=== PATIENT | female | born 1960 | race Caucasian/White ===

== ENCOUNTER 2020-03-15 09:16 | Outpatient (CLI) | payer OTHER, SELFPAY ==
[2020-03-15 09:27] LABS: Basophils Percent Auto 1.1 % (0.2-1.2); Eosinophils Absolute Auto 0.1 K/mm3 (0-0.3); Eosinophils Percent Auto 3.9 % (0-4.4); Hematocrit 54.2 % (37.0-47.0); Hemoglobin 18.3 g/dL (12.0-15.0); Immature Granulocyte Absolute 0.01 K/mm3 (0.00-0.031); Immature Granulocyte Percent A 0.3 % (0-0.5); Lymphocytes Absolute Auto 0.75 K/mm3 (0.9-3.2); Lymphocytes Percent Auto 20.7 % (18.3-44.2); Mean Corpuscular HGB Conc 33.8 g/dl (32-36); Mean Corpuscular Hemoglobin 31.2 pg (26-34); Mean Corpuscular Volume 92.3 fl (80-100); Monocytes Absolute Auto 0.4 K/mm3 (0.1-0.6); Monocytes Percent Auto 10.5 % (2.6-8.5); Neutrophils Absolute Auto 2.3 K/mm3 (1.3-6.7); Neutrophils Percent Auto 63.5 % (45.5-73.1); Platelet Count Result 181 k/mm3 (150-375); Red Blood Count 5.87 M/mm3 (4.2-5.4); Red Cell Distribution Width 12.3 % (11.5-14.5); White Blood Count 3.6 K/mm3 (4.5-10.0)
[2020-03-15 12:38] LABS: Alanine Aminotransferase 15 U/L (4-35); Albumin Level 4.6 g/dL (3.5-5.1); Alkaline Phosphatase 80 U/L (38-126); Aspartate Amino Transferase 29 U/L (14-36); Bilirubin,Total 0.4 mg/dL (0.2-1.3); Blood Urea Nitrogen 23 mg/dL (7-17); Calcium 9.9 mg/dL (8.4-10.2); Carbon Dioxide 23 mmol/L (22-30); Chloride 108 mmol/L (98-107); Cholesterol 158 mg/dL (0-200); Estimated Glomerular Filt Rate > 60; Glucose 114 mg/dL (65-105); HDL Direct 64 mg/dL; Potassium 4.5 mmol/L (3.4-5.0); Sodium 139 mmol/L (137-145); Triglycerides 44 mg/dL (<150)
[2020-03-15 12:50] LABS: LDL Cholesterol Direct 81 mg/dL
[2020-03-20 16:45] LABS: Hepatitis C Viral RNA PCR <15 IU/mL
[2020-03-21 17:16] LABS: HIV 1 RNA PCR <1.30 Log cps/mL; HIV 1 RNA PCR <20 Copies/mL
== END 2020-03-15 09:17 | disposition home or self-care (01) ==
LOC: ANHLAB 09:17
PROVIDERS: PCP Family Medicine; Visit Provider Family Medicine
DX: M81.0 Age-related osteoporosis without current pathological fracture (principal); Z13.220 Encounter for screening for lipoid disorders; Z11.4 Encounter for screening for human immunodeficiency virus [HIV]; Z11.59 Encounter for screening for other viral diseases
CPT/HCPCS: 36415; 80053; 80061; 85025; 87522; 87536

== ENCOUNTER 2020-07-30 08:40 | Outpatient (CLI) | payer OTHER, SELFPAY ==
[2020-07-30 11:00] LABS: Vitamin D 25 Hydroxy 38.3 ng/mL
== END 2020-07-30 08:41 | disposition home or self-care (01) ==
LOC: ANHLAB 08:43
PROVIDERS: PCP Family Medicine; Referring Provider Nurse Practitioner; Visit Provider Internal Medicine Hematology & Oncology
DX: E55.9 Vitamin D deficiency, unspecified (principal)
CPT/HCPCS: 36415; 82306

== ENCOUNTER 2020-11-14 11:50 | Outpatient (CLI) | payer OTHER, SELFPAY ==
[2020-11-14 13:52] LABS: Vitamin D 25 Hydroxy 39.3 ng/mL
== END 2020-11-14 11:51 | disposition home or self-care (01) ==
LOC: ANHLAB 11:52
PROVIDERS: PCP Family Medicine; Visit Provider Obstetrics & Gynecology Gynecology
DX: E55.9 Vitamin D deficiency, unspecified (principal)
CPT/HCPCS: 36415; 82306

== ENCOUNTER 2021-01-04 10:24 | Outpatient (CLI) | payer OTHER, SELFPAY ==
--- NOTE | ~2021-01-04 | DEXA_ITS ---
Bone Density Report Name: Germania Nicholas Age: 60 Sex: Female Ethnicity: White Date of : 1960 Indication: postmenopausal osteoporosis; monitoring treatment; prior fracture; Referring Provider: Ramirez, Nu Study: Bone densitometry was performed. Exam Date: January 04, 2021 Accession number: [id number] Bone Density: Region BMD T-score Z-score Classification AP Spine (L1-L4) 0.762 -2.6 -1.1 Osteoporosis Femoral Neck (Left) 0.595 -2.3 -1.0 Osteopenia Total Hip (Left) 0.745 -1.6 -0.6 Osteopenia Total Hip Bilateral Avg 0.753 -1.6 -0.6 Osteopenia Femoral Neck (Right) 0.599 -2.2 -0.9 Osteopenia Total Hip (Right) 0.760 -1.5 -0.5 Osteopenia World Health Organization criteria for BMD impression classify patients as: Normal (T-score at or above -1.0), Osteopenia (T-score between -1.0 and -2.5), or Osteoporosis (T-score at or below -2.5). 10-year Fracture Risk: FRAX not reported because: Some T-score for Spine Total or Hip Total or Femoral Neck at or below -2.5 Treated for osteoporosis Previous Exams: Region Exam Age BMD T-score BMD Change BMD Change Date g/cm2 vs Baseline vs Previous AP Spine(L1-L4) 01/04/2021 60 0.762 -2.6 -0.105(-12.1%) -0.011(-1.4%)# 10/24/2018 57 0.773 -2.5 -0.094(-10.9%) -0.091(-10.5%) 09/13/2014 53 0.863 -1.7 -0.004(-0.4%)# -0.027(-3.0%)# 05/19/2012 51 0.890 -1.4 0.023(2.7%)# 0.023(2.7%)# 04/28/2010 49 0.867 -1.6 Total Hip(Left) 01/04/2021 60 0.745 -1.6 0.062(9.1%)# -0.056(-7.0%)# 10/24/2018 57 0.801 -1.2 0.118(17.3%)# 0.082(11.4%)* 09/13/2014 53 0.719 -1.8 0.036(5.3%)# 0.031(4.6%)# 05/19/2012 51 0.688 -2.1 0.005(0.7%)# 0.005(0.7%)# 04/28/2010 49 0.683 -2.1 Total Hip(Right) 01/04/2021 60 0.760 -1.5 0.099(15.0%)# -0.003(-0.4%)# 10/24/2018 57 0.763 -1.5 0.102(15.4%)# 0.059(8.3%)* 09/13/2014 53 0.705 -1.9 0.044(6.6%)# -0.021(-2.9%)# 05/19/2012 51 0.725 -1.8 0.064(9.7%)# 0.064(9.7%)# 04/28/2010 49 0.661 -2.3 *Denotes significance at 95% confidence level, LSC for AP Spine = 0.022 g/cm2, LSC for Total Hip = 0.027 g/cm2 Clinical Information Provided by Patient: Has had a low trauma fracture Is being treated for osteoporosis Has used the following medications: Vitamin D, Calcium Patient maximum height was 63 Drinks caffeinated beverages Onset of menses at age 13 Number of children 3 Impression: The patient
--- NOTE | ~2021-01-04 | MM_ITS ---
EXAMINATION: MM screening [facility] BI w [place] HISTORY: Screening mammogram TECHNIQUE: Craniocaudal and mediolateral oblique 3-D tomosynthesis images were obtained and synthetic 2-D images were generated. CAD analysis was submitted and interpreted. COMPARISON: 11/02/2019, 10/24/2018, 10/22/2017 BREAST PARENCHYMAL COMPOSITION: The breasts are heterogeneously dense, which may obscure small masses . FINDINGS: There is no evidence of suspicious mass, calcification, or architectural distortion to sugg est malignancy in either breast. There has been no suspicious interval change. IMPRESSION: 1. No mammographic evidence of malignancy. 2. Recommend routine screening mammography in one year. BI-RADS Category 1: Negative Reviewed, dictated and finalized at location A. R SYSTEM IN[employer]ER
== END 2021-01-04 10:25 | disposition home or self-care (01) ==
LOC: ANHIMG 10:27
PROVIDERS: Family Provider Family Medicine; Visit Provider Nurse Practitioner
DX: Z12.31 Encounter for screening mammogram for malignant neoplasm of breast (principal); M81.0 Age-related osteoporosis without current pathological fracture; M85.852 Other specified disorders of bone density and structure, left thigh; M85.851 Other specified disorders of bone density and structure, right thigh
CPT/HCPCS: 77063; 77067; 77080

== ENCOUNTER 2021-02-26 09:14 | Outpatient (CLI) | payer OTHER, SELFPAY ==
[2021-02-26 13:42] LABS: Vitamin D 25 Hydroxy > 126.0 ng/mL
== END 2021-02-26 09:15 | disposition home or self-care (01) ==
LOC: ANHLAB 09:19
PROVIDERS: PCP Family Medicine; Visit Provider Obstetrics & Gynecology Gynecology
DX: E55.9 Vitamin D deficiency, unspecified (principal)
CPT/HCPCS: 36415; 82306

== ENCOUNTER 2021-08-06 13:45 | Outpatient (CLI) | payer OTHER, SELFPAY ==
[2021-08-06 14:35] LABS: Hematocrit 40.3 % (37.0-47.0); Hemoglobin 13.7 g/dL (12.0-15.0); Mean Corpuscular Hemoglobin 31.3 pg (26-34); Mean Platelet Volume 10.3 fl (7.4-10.4); Platelet Count Result 275 k/mm3 (150-375); Red Blood Count 4.38 M/mm3 (4.2-5.4); Red Cell Distribution Width 12.7 % (11.5-14.5); White Blood Count 3.8 K/mm3 (4.5-10.0)
[2021-08-06 16:33] LABS: Alanine Aminotransferase 16 U/L (4-35); Albumin Level 4.8 g/dL (3.5-5.1); Alkaline Phosphatase 70 U/L (38-126); Anion Gap 13 mmol/L (8-16); Aspartate Amino Transferase 64 U/L (14-36); Bilirubin,Total 0.8 mg/dL (0.2-1.3); Blood Urea Nitrogen 19 mg/dL (7-17); Calcium 9.7 mg/dL (8.4-10.2); Carbon Dioxide 24 mmol/L (22-30); Chloride 105 mmol/L (98-107); Cholesterol 185 mg/dL (0-200); Estimated Glomerular Filt Rate > 60; Glucose 104 mg/dL (65-110); HDL Direct 64 mg/dL; Potassium 4.6 mmol/L (3.4-5.0); Sodium 142 mmol/L (137-145); Triglycerides 63 mg/dL (<150)
[2021-08-06 16:44] LABS: LDL Cholesterol Direct 89 mg/dL
[2021-08-06 17:09] LABS: Vitamin D 25 Hydroxy 68.4 ng/mL
== END 2021-08-06 13:46 | disposition home or self-care (01) ==
LOC: ANHLAB 14:29
PROVIDERS: PCP Family Medicine; Visit Provider Physician Assistant
DX: E55.9 Vitamin D deficiency, unspecified (principal); Z00.00 Encounter for general adult medical examination without abnormal findings
CPT/HCPCS: 36415; 80053; 80061; 82306; 84443; 85027

== ENCOUNTER 2021-09-11 12:44 | Outpatient (CLI) | payer OTHER, SELFPAY ==
[2021-09-11 13:14] LABS: Alanine Aminotransferase 16 U/L (4-35); Albumin Level 4.5 g/dL (3.5-5.1); Alkaline Phosphatase 70 U/L (38-126); Aspartate Amino Transferase 29 U/L (14-36); Bilirubin,Total 0.8 mg/dL (0.2-1.3)
== END 2021-09-11 12:45 | disposition home or self-care (01) ==
LOC: ANHLAB 12:46
PROVIDERS: PCP Family Medicine; Visit Provider Physician Assistant
DX: R74.8 Abnormal levels of other serum enzymes (principal)
CPT/HCPCS: 36415; 80076

== ENCOUNTER 2022-01-27 15:42 | Outpatient (CLI) | payer OTHER, SELFPAY ==
--- NOTE | ~2022-01-27 | MM_ITS ---
EXAMINATION: MM screening [facility] BI w [place] HISTORY: Screening mammogram TECHNIQUE: Craniocaudal and mediolateral oblique 3-D tomosynthesis images were obtained and synthetic 2-D images were generated. CAD analysis was submitted and interpreted. COMPARISON: 01/04/2021, 11/02/2019, 10/24/2018 BREAST PARENCHYMAL COMPOSITION: The breasts are heterogeneously dense, which may obscure small masses . FINDINGS: There is no suspicious mass, calcification, or architectural distortion to suggest malignan cy in either breast. There has been no suspicious interval change. IMPRESSION: 1. No mammographic evidence of malignancy. 2. Recommend routine screening mammography in one year. BI-RADS Category 1: Negative Reviewed, dictated and finalized at location A.
== END 2022-01-27 15:43 | disposition home or self-care (01) ==
LOC: ANHIMG 15:43
PROVIDERS: PCP Family Medicine; Visit Provider Nurse Practitioner
DX: Z12.31 Encounter for screening mammogram for malignant neoplasm of breast (principal)
CPT/HCPCS: 77063; 77067

== ENCOUNTER 2022-10-16 08:29 | Outpatient (CLI) | payer OTHER, SELFPAY ==
[2022-10-16 08:53] LABS: Hematocrit 39.6 % (37.0-47.0); Hemoglobin 13.5 g/dL (12.0-15.0); Mean Corpuscular HGB Conc 34.1 g/dl (32-36); Mean Corpuscular Volume 93.8 fl (80-100); Mean Platelet Volume 9.8 fl (7.4-10.4); Platelet Count Result 252 k/mm3 (150-375); Red Blood Count 4.22 M/mm3 (4.2-5.4); Red Cell Distribution Width 12.2 % (11.5-14.5); White Blood Count 3.5 K/mm3 (4.5-10.0)
[2022-10-16 10:20] LABS: Alanine Aminotransferase 22 U/L (6-35); Albumin Level 4.5 g/dL (3.5-5.1); Alkaline Phosphatase 70 U/L (38-126); Anion Gap 9 mmol/L (8-16); Aspartate Amino Transferase 30 U/L (14-36); Bilirubin,Total 0.8 mg/dL (0.2-1.3); Blood Urea Nitrogen 21 mg/dL (7-17); Calcium 9.5 mg/dL (8.4-10.2); Carbon Dioxide 26 mmol/L (22-30); Chloride 106 mmol/L (98-107); Estimated Glomerular Filt Rate > 60; Glucose 104 mg/dL (65-110); Potassium 4.2 mmol/L (3.4-5.0); Sodium 141 mmol/L (137-145)
== END 2022-10-16 08:30 | disposition home or self-care (01) ==
LOC: ANHLAB 08:30
PROVIDERS: PCP Family Medicine; Visit Provider Family Medicine
DX: Z00.00 Encounter for general adult medical examination without abnormal findings (principal); Z79.899 Other long term (current) drug therapy
CPT/HCPCS: 36415; 80053; 84443; 85027

== ENCOUNTER 2023-02-11 10:04 | Outpatient (CLI) | payer OTHER, SELFPAY ==
[2023-02-11 12:33] LABS: Cholesterol 200 mg/dL (0-200); HDL Direct 52 mg/dL; Triglycerides 106 mg/dL (<150)
[2023-02-11 12:44] LABS: LDL Cholesterol Direct 113 mg/dL
== END 2023-02-11 10:05 | disposition home or self-care (01) ==
LOC: ANHLAB 10:06
PROVIDERS: PCP Family Medicine; Visit Provider Family Medicine
DX: Z00.00 Encounter for general adult medical examination without abnormal findings (principal); Z79.899 Other long term (current) drug therapy
CPT/HCPCS: 36415; 80061

== ENCOUNTER 2023-02-25 16:28 | Outpatient (CLI) | payer OTHER, SELFPAY ==
--- NOTE | ~2023-02-25 | DEXA_ITS ---
Bone Density Report Name: MALLORY OATES Age: 62 Sex: Female Ethnicity: White Date of : 1960 Indication: postmenopausal osteoporosis; prior fracture; Referring Provider: BAR, CRISTIANA Study: Bone densitometry was performed. Exam Date: February 25, 2023 Accession number: [id number] Bone Density: Region BMD T-score Z-score Classification AP Spine(L1-L4) 0.836 -1.9 -0.3 Osteopenia Femoral Neck (Left) 0.644 -1.8 -0.4 Osteopenia Total Hip (Left) 0.725 -1.8 -0.7 Osteopenia Femoral Neck (Right) 0.661 -1.7 -0.3 Osteopenia Total Hip (Right) 0.740 -1.7 -0.5 Osteopenia Total Hip Mean 0.733 -1.8 -0.6 Osteopenia World Health Organization criteria for BMD impression classify patients as: Normal (T-score at or above -1.0), Osteopenia (T-score between -1.0 and -2.5), or Osteoporosis (T-score at or below -2.5). 10-year Fracture Risk(1): Major Osteoporotic Fracture 15% Hip Fracture 2.0% Reported Risk Factors: [place] (), Neck BMD=0.644, BMI=22.1, previous fracture (1) FRAX(R) Version 3.08. Fracture probability calculated for an untreated patient. Fracture probability may be lower if the patient has received treatment. Previous Exams: Region Exam Age BMD T-score BMD Change BMD Change Date g/cm2 vs Baseline vs Previous AP Spine (L1-L4) 02/25/2023 62 0.836 -1.9 0.064 (8.2%)* 0.074 (9.7%)# 01/04/2021 60 0.762 -2.6 -0.011 (-1.4%) -0.011 (-1.4%) 10/24/2018 57 0.773 -2.5 Total Hip(Left) 02/25/2023 62 0.725 -1.8 -0.076 (-9.5%) -0.019 (-2.6%) 01/04/2021 60 0.745 -1.6 -0.056 (-7.0%) -0.056 (-7.0%) 10/24/2018 57 0.801 -1.2 Total Hip(Right) 02/25/2023 62 0.740 -1.7 -0.023 (-3.0%) -0.020 (-2.7%) 01/04/2021 60 0.760 -1.5 -0.003 (-0.4%) -0.003 (-0.4%) 10/24/2018 57 0.763 -1.5 *Denotes significance at 95% confidence level, LSC for AP Spine = 0.022 g/cm2, LSC for Total Hip = 0.027 g/cm2 # Denotes dissimilar scan types or analysis methods Clinical Information Provided by Patient: Has had a low trauma fracture Has used the following medications: Vitamin D, Calcium Patient maximum height was 63 Menopause Age: 51 Drinks caffeinated beverages Onset of menses at age 12 Number of children 3 Impression: The patient has low bone mass, based on the Total Spine T-score. The patient has an estimated ten-year risk of hip fracture of 2% and an estimated ten-year risk of major fracture of 15%
--- NOTE | ~2023-02-25 | MM_ITS ---
EXAMINATION: MM screening [facility] BI w [place] HISTORY: Screening mammogram TECHNIQUE: Craniocaudal and mediolateral oblique 3-D tomosynthesis images were obtained and synthetic 2-D images were generated. CAD analysis was submitted and interpreted. COMPARISON: 01/27/2022, 01/04/2021, 11/02/2019 BREAST PARENCHYMAL COMPOSITION:The breasts are heterogeneously dense, which may obscure small masses. FINDINGS: No suspicious mass, calcification, or architectural distortion are identified in either reva ast to suggest malignancy. There has been no suspicious interval change. IMPRESSION: No mammographic evidence of malignancy. Recommend routine screening mammography in one year. BI-RADS Category 1: Negative Reviewed, dictated and finalized at location .
== END 2023-02-25 16:29 | disposition home or self-care (01) ==
PROVIDERS: PCP Family Medicine; Visit Provider Nurse Practitioner
DX: Z12.31 Encounter for screening mammogram for malignant neoplasm of breast (principal); M81.0 Age-related osteoporosis without current pathological fracture; M85.9 Disorder of bone density and structure, unspecified
CPT/HCPCS: 77063; 77067; 77080

== ENCOUNTER 2023-11-19 08:15 | Outpatient (CLI) | payer OTHER, SELFPAY ==
[2023-11-19 08:21] LABS: Hematocrit 43.1 % (37.0-47.0); Hemoglobin 14.6 g/dL (12.0-15.0); Mean Corpuscular HGB Conc 33.9 g/dl (32-36); Mean Corpuscular Hemoglobin 31.7 pg (26-34); Mean Corpuscular Volume 93.7 fl (80-100); Mean Platelet Volume 9.3 fl (7.4-10.4); Platelet Count Result 273 k/mm3 (150-375); White Blood Count 4.2 K/mm3 (4.5-10.0)
[2023-11-19 09:58] LABS: Alanine Aminotransferase 20 U/L (6-35); Albumin Level 4.6 g/dL (3.5-5.1); Alkaline Phosphatase 80 U/L (38-126); Anion Gap 10 mmol/L (8-16); Aspartate Amino Transferase 29 U/L (14-36); Blood Urea Nitrogen 21 mg/dL (7-17); Carbon Dioxide 26 mmol/L (22-30); Chloride 104 mmol/L (98-107); Cholesterol 237 mg/dL (0-200); Estimated Glomerular Filt Rate > 60; Glucose 104 mg/dL (65-110); HDL Direct 67 mg/dL; Potassium 4.6 mmol/L (3.4-5.0); Sodium 140 mmol/L (137-145); Triglycerides 66 mg/dL (<150)
[2023-11-19 10:08] LABS: LDL Cholesterol Direct 122 mg/dL
[2023-11-19 10:27] LABS: Thyroid Stimulating Hormone 0.793 uIU/mL (0.465-4.680)
[2023-11-23 12:24] LABS: Vitamin D 1,25 (OH)2 Total 77 pg/mL (18-72); Vitamin D2 1,25 (OH)2 <8 pg/mL; Vitamin D3 1,25 (OH)2 77 pg/mL
== END 2023-11-19 08:16 | disposition home or self-care (01) ==
PROVIDERS: PCP Family Medicine; Visit Provider Internal Medicine Hematology & Oncology
DX: Z00.00 Encounter for general adult medical examination without abnormal findings (principal); E55.9 Vitamin D deficiency, unspecified; E78.5 Hyperlipidemia, unspecified; Z79.899 Other long term (current) drug therapy
CPT/HCPCS: 36415; 80053; 80061; 82652; 84443; 85027

== ENCOUNTER 2024-06-20 16:51 | Emergency (ER) | payer OTHER, SELFPAY ==
--- NOTE | 2024-06-20 17:18 | ED.EYEPROB ---
HPI - Eye Problem General Chief complaint: Eye Problems Stated complaint: problem w right eye Time Seen by Provider: 06/20/24 17:30 Source: patient Mode of arrival: ambulatory Limitations: no limitations History of Present Illness HPI Narrative: Germania is a 63-year-old female patient presenting to the clinic today with complaints of a gritty sensation, tearing, and redness to the right eye. She reports this started last night around 2:00 a.m. in the morning when she started to rub her eye. Is reporting some photosensitivity and slight eye discomfort. Denies being around anybody with pinkeye. She does wear contacts. Related Data Home Medications Medication Instructions Recorded Confirmed magnesium citrate 100 mg tablet 100 mg PO DAILY 03/07/20 06/20/24 cholecalciferol (vitamin D3) 50 50 mcg PO TID 11/01/23 06/20/24 mcg (2,000 unit) capsule multivitamin 1 tablet PO DAILY 11/01/23 06/20/24 Allergies Allergy/AdvReac Type Severity Reaction Status Date / Time No Known Allergies Allergy Verified 06/20/24 17:28 Review of Systems Review of Systems: Pertinent positives per HPI. Patient denies any fever, chills, rash, headache, visual changes, dizziness, cough, runny nose, sore throat, shortness of breath, chest pain, palpitations, nausea, vomiting, diarrhea, constipation, abdominal pain, or any urinary issues. [facility] Past Medical History Medical History Osteoporosis (~2018) Surgical History Surgical History H/O colonoscopy (~2009) H/O right wrist surgery (~1999) S/P LEEP of cervix (~2001) Family History Family History Mother Hypertension Anxiety Migraines Father , passed at 27 d/t car accident No problems noted. Grandparent Osteoporosis Cataract Hearing loss Social History Social History Social History: Pt states that she smoke for 2 years from [id number] Smoking status: Never smoker Second hand tobacco smoke exposure: No Alcohol intake: current Alcohol use details: Socially Substance use: never Lack of Transportation: No Lack of Food: Never True Current Housing: I Have Housing Concerned About Future Housing: No Difficulty Paying Gas/Electric Bills: No Difficulty Paying for Meds: No Currently Unemployed: No Education: Associate Degree Difficulty w/ Childcare or Family Care: No Living arrangements: with family Additional living arrangements comments: 30+ years Occupation/Education: occupation Gender identity (if verbalized by the patient): Female Spiritual care concerns: No Agree to blood products: Yes Comments At the time of my signature, I reviewed and agree with the nursing past medical, surgical, social, and family history. There is no relevant family history pertinent to the patient complaint. Exam Narrative: General: Well-developed, well nourished, in no apparent distress Head: Normocephalic, atraumatic Eyes: Pupils equally round and reactive to light bilaterally, EOM intact, right sclera and conjunctiva injected, left sclera and conjunctive clear, no discharge, lids normal, Wood's lamp exam was performed and shows a corneal abrasion to the right medial corneal at approx 2 o'clock. Ears: TMs intact and clear, ear canals clear, no drainage, grossly hearing normal. Nose: Nares patent, no discharge, no inflammation, no sinus tenderness. Mouth: Oropharynx without lesions or masses, good dentition, MMM. Neck: Supple, trachea midline, no enlargement of anterior or posterior cervical nodes, no thyroid masses or goiter palpable. Cardio: Regular rate and rhythm, s1 and s2 normal, no murmur appreciated. Resp: Clear to auscultation bilaterally anteriorly and posteriorly, no rhonchi
[2024-06-20 17:21] VITALS: BP 146/78; PULSE 90; RESP 16; TEMP 36.8; O2SAT 99
== END 2024-06-20 17:45 | disposition home or self-care (01) ==
PROVIDERS: Emergency Provider Nurse Practitioner Family; PCP Family Medicine
DX: S05.01XA Injury of conjunctiva and corneal abrasion without foreign body, right eye, initial encounter (principal); X58.XXXA Exposure to other specified factors, initial encounter; M81.0 Age-related osteoporosis without current pathological fracture; Z87.891 Personal history of nicotine dependence
CPT/HCPCS: 99213; A9270; G0463

== ENCOUNTER 2024-08-11 13:31 | Outpatient (CLI) | payer OTHER, SELFPAY ==
--- NOTE | ~2024-08-11 | MM_ITS ---
EXAMINATION: MM screening [facility] w [place] HISTORY: Screening TECHNIQUE: Craniocaudal and mediolateral oblique 3-D tomosynthesis images were obtained and synthetic 2-D images were generated. CAD analysis was submitted and interpreted. COMPARISON: Comparison to multiple prior studies sequentially, with oldest reviewed study dated 06/2017. BREAST PARENCHYMAL COMPOSITION: Dense: The breasts are heterogeneously dense, which may obscure small masses FINDINGS: There is no evidence of suspicious mass, calcification, or architectural distortion to sugg est malignancy in either breast. There has been no suspicious interval change. IMPRESSION: 1. No mammographic evidence of malignancy. 2. Recommend routine screening mammography in one year. BI-RADS Category 1: Negative Reviewed, dictated and finalized at location B.
== END 2024-08-11 13:32 | disposition home or self-care (01) ==
LOC: ANHIMG 13:33
PROVIDERS: PCP Family Medicine; Visit Provider Nurse Practitioner
DX: Z12.31 Encounter for screening mammogram for malignant neoplasm of breast (principal)
CPT/HCPCS: 77063; 77067

== ENCOUNTER 2024-10-26 08:50 | Outpatient (CLI) | payer OTHER, SELFPAY ==
[2024-10-26 09:01] LABS: Hematocrit 43.4 % (37.0-47.0); Hemoglobin 14.5 g/dL (12.0-15.0); Mean Corpuscular HGB Conc 33.4 g/dl (32-36); Mean Corpuscular Hemoglobin 31.3 pg (26-34); Mean Corpuscular Volume 93.7 fl (80-100); Mean Platelet Volume 9.7 fl (7.4-10.4); Platelet Count Result 276 k/mm3 (150-375); Red Blood Count 4.63 M/mm3 (4.2-5.4); Red Cell Distribution Width 12.2 % (11.5-14.5); White Blood Count 4.1 K/mm3 (4.5-10.0)
[2024-10-26 09:27] LABS: Alanine Aminotransferase 15 U/L (6-35); Albumin Level 4.7 g/dL (3.5-5.1); Alkaline Phosphatase 63 U/L (38-126); Anion Gap 4 mmol/L (4-12); Aspartate Amino Transferase 27 U/L (14-36); Blood Urea Nitrogen 22 mg/dL (7-17); Calcium 9.8 mg/dL (8.4-10.2); Carbon Dioxide 29 mmol/L (22-30); Chloride 107 mmol/L (98-107); Cholesterol 198 mg/dL (0-200); Estimated Glomerular Filt Rate > 60; Glucose 128 mg/dL (65-110); HDL Direct 77 mg/dL; Potassium 4.4 mmol/L (3.4-5.0); Sodium 140 mmol/L (137-145); Triglycerides 70 mg/dL (<150)
[2024-10-26 09:38] LABS: LDL Cholesterol Direct 83 mg/dL
[2024-10-26 09:46] LABS: Vitamin D 25 Hydroxy 51.1 ng/mL
[2024-10-26 13:34] LABS: Hemoglobin A1C 5.4 % (<5.7)
== END 2024-10-26 08:51 | disposition home or self-care (01) ==
PROVIDERS: Nurse Practitioner; PCP Family Medicine; Visit Provider Internal Medicine Hematology & Oncology
DX: Z00.00 Encounter for general adult medical examination without abnormal findings (principal); E55.9 Vitamin D deficiency, unspecified; R73.01 Impaired fasting glucose
CPT/HCPCS: 36415; 80053; 80061; 82306; 83036; 84443; 85027